=== PATIENT | male | born 1945 ===

== ENCOUNTER 2017-08-26 12:48 | Emergency (ER) | payer OTHER ==
[~2017-08-26] VITALS: Ht 182.9 cm; Wt 88.5 kg
[~2017-08-26 12:48] MED LIST: AVAPRO75 MG
[2017-08-26] MEDS ORDERED: TOPROL XL25 M1 (13:09)
[2017-08-26] MEDS ORDERED: LANTUS SOL100 UNIT/1 (13:09)
== END 2017-08-26 21:13 | disposition home or self-care (01) ==
LOC: ER 12:48 → CPU-OBS 13:06 → ER 13:06
DX: R07.89 Other chest pain (principal); E11.65 Type 2 diabetes mellitus with hyperglycemia